=== PATIENT | male | born 1955 | race Caucasian/White ===

== ENCOUNTER 2020-04-19 02:48 | Inpatient (IN) | payer OTHER, SELFPAY ==
[2020-04-19] MEDS ORDERED: Lidocaine Viscous Sol 2% 15 ml UD Cup ONE (03:06)
[2020-04-19] MEDS ORDERED: Mag-Al 1200 mg/1200 mg/30 ML UDCUP ONE (03:06)
[2020-04-19 03:32] LABS: #Eosinphils 0.2 thou/uL (0.0-0.7); #Lymphocytes 1.8 thou/uL (1.20-3.40); #Monocytes 0.9 thou/uL (0.11-0.59); #Neutrophils 11.2 thou/uL (1.40-6.50); %Basophils 0.2 % (0.0-1.0); %Eosinophils 1.2 % (0.0-10.0); %Lymphocytes 12.9 % (21.0-51.0); %Monocytes 6.2 % (0.0-10.0); %Neutrophils 79.5 % (42.0-75.0); Hemoglobin 13.3 g/dL (14.0-18.0); Mean Corpuscular HGB CONC 32.1 g/dL (32.0-36.0); Mean Corpuscular Hemoglobin 24.5 pg (27.0-31.0); Mean Corpuscular Volume 76.4 fL (78.0-98.0); Mean Platelet Volume 7.7 fL (7.4-10.4); Platelet Count 419 thou/uL (130-400); RBC Distribution Width 14.6 % (11.5-14.5); Red Blood Cell (RBC) Count 5.42 mill/uL (4.70-6.10); White Blood Cell (WBC) Count 14.2 thou/uL (4.8-10.8)
[2020-04-19 03:51] LABS: ALT (SGPT) 213 U/L (8-55); AST (SGOT) 141 U/L (5-34); Albumin 4.3 g/dL (3.4-4.8); Alkaline Phosphatase 218 U/L (40-110); Anion Gap 19 mmol/L (10-20); BUN (Urea Nitrogen) 22 mg/dL (8.4-25.7); CK (CPK) 63 U/L (30-200); Calc. Creatinine Clearance 0 mL/min (70-130); Carbon Dioxide 23 mmol/L (23-31); Chloride 97 mmol/L (98-107); Estimated GFR-MDRD 69; Globulin 3.5 g/dL (2.4-3.5); Glucose 237 mg/dL (80-115); Lipase 29 U/L (8-78); Potassium 3.2 mmol/L (3.5-5.1); Protein, Total 7.8 g/dL (5.8-8.1); Sodium 136 mmol/L (136-145)
[2020-04-19] MEDS ORDERED: metroNIDAZOLE 500 MG/100 ML BAG ONE (05:27)
[2020-04-19] MEDS ORDERED: Fentanyl 100 MCG/2 ML VIAL ONE ×3 (05:27→22:36)
[2020-04-19] MEDS ORDERED: Ondansetron PF 4 MG/2 ML Vial ONE ×2 (05:33→13:34)
[2020-04-19] MEDS ORDERED: Morphine 2 MG/ML SYRINGE SLOW IVP PRN (06:50)
[2020-04-19] MEDS ORDERED: Dextrose 50% Abboject 50 ML SYRINGE SLOW IVP PRN (06:50)
[2020-04-19] MEDS ORDERED: Insulin Regular 300 UNITS/3 ML VIAL SC PRN (06:50)
[2020-04-19] MEDS ORDERED: Dextrose 5% in Water 1,000 ML IV PRN (06:50)
[2020-04-19] MEDS ORDERED: Promethazine HCl 25 MG/ML VIAL IM PRN ×2 (06:50→22:13)
[2020-04-19] MEDS ORDERED: hydrALAZINE 20 MG/ML VIAL SLOW IVP PRN (06:50)
[2020-04-19 07:04] LABS: INR-International Normal Ratio 0.9; PTT 29.4 sec (22.9-36.1); Prothrombin Time 12.3 sec (12.0-14.7)
[2020-04-19 07:18] LABS: Magnesium 1.6 mg/dL (1.6-2.6); Phosphorus 2.8 mg/dL (2.3-4.7)
[2020-04-19 08:03] VITALS: BMI 37.8
[2020-04-19] MEDS ORDERED: traMADol HCl 50 MG TAB PO PRN (08:14)
[2020-04-19] MEDS ORDERED: Magnesium 2 GM/50 ML 2 GM in Premix Bag 1 BAG IVPB SCH (08:45)
--- NOTE | 2020-04-19 09:05 | RAD ---
PORTABLE CHEST: DATE: 04/19/2020. PROVIDED CLINICAL HISTORY: Chest pain. FINDINGS: Comparison 04/05/2020. Cardiac and mediastinal silhouette is within normal limits. Vascular calcific ation is noted involving the aortic arch. No focal consolidation, pleural fluid, or pneumothorax alison arent. Remote healed right clavicular fracture. IMPRESSION: No evidence for an acute cardiopulmonary process. POS: TORIE
--- NOTE | 2020-04-19 09:06 | HP ---
This is Josefa Campuzano NP dictating a report for Tacos Gaitan DO. REQUESTING PHYSICIAN: Dr. Ann. CHIEF COMPLAINT: Abdominal pain, nausea, vomiting off and on for 2 weeks. HISTORY OF PRESENT ILLNESS: This is a 65-year-old gentleman, who presented to the emergency room with complaints of epigastric type chest pain since about 10 o'clock last night. The patient states that the pain is worse when he lies flat and improves some when sitting up. The patient felt like he was having heart pain as he had a squeezing sensation in his upper mid chest. The patient denied any shortness of breath, lightheadedness, fever, or chills. The patient's pain has been off and on for about two weeks. The patient has also had some nausea and vomiting off and on, vomiting mainly occurs at night. The patient also reports feeling bloated and belching. The patient had a bowel movement last night, which was normal. The patient reports he normally has 2 to 3 bowel movements every day. The patient was evaluated in the emergency room and the gallbladder ultrasound was obtained, showing cholelithiasis. The patient was given levofloxacin and Flagyl in the emergency room. The patient was also given fentanyl, which improved his pain. The patient reports pain is not associated with eating. REVIEW OF SYSTEMS: A 10-point review of systems is negative unless otherwise indicated in the above HPI. PAST MEDICAL HISTORY: Diabetes type 2, hypertension, and hyperlipidemia. PAST SURGICAL HISTORY: Appendectomy and right ankle repair. ALLERGIES: PENICILLIN. CURRENT MEDICATIONS: 1. Amlodipine 10 mg daily. 2. Fish oil/omega-3-6-9. 3. Hydralazine 25 mg p.o. 3 times a day. 4. Lisinopril 20 mg daily. 5. Loratadine 10 mg daily. 6. Metformin 500 mg b.i.d. with meals. 7. Simvastatin 40 mg daily at bedtime. 8. Glimepiride 4 mg q.a.m. SOCIAL HISTORY: The patient denies alcohol use, smokes marijuana, former tobacco user. OBJECTIVE: VITAL SIGNS: Blood pressure 149/81, pulse 79, respirations 19, SpO2 of 96% on room air, and temperature 98.3. GENERAL: Middle-aged male, awake, alert, in no distress. HEENT: Atraumatic and normocephalic. Mucous membranes moist. Pupils equal bilateral. NECK: Normal range of motion of neck, trachea midline. RESPIRATORY: Bilateral breath sounds clear. No wheezing, rales, or rhonchi. CARDIAC: Regular rate. Regular rhythm. No murmurs. ABDOMEN: Obese, mildly distended, soft, nontender. No peritoneal signs. Diffuse tenderness with palpation. EXTREMITIES: Moves all extremities, neurovascularly intact x4. NEUROLOGIC: No focal deficits. DIAGNOSTIC DATA: 12-lead EKG, normal sinus rhythm, 78, no ectopy, normal ST and T-waves, prolonged QTc. Chest x-ray, impression, no acute cardiopulmonary process, pending official read. Abdominal ultrasound, impression, enlarged liver, cholelithiasis as noted with gallbladder sludge and gallbladder is markedly distended at 15 cm. No wall thickening. No pericholecystic fluid. Positive sonographic Lowery sign. Ultrasound was reviewed by Dr. Gaitan, common bile duct normal diameter at 2 mm. LABORATORY DATA: WBC 14.2, RBC 5.42, hemoglobin 13.3, hematocrit 41.4, platelets 419. PT 12.3, INR 0.9, APTT 29.4. Sodium 136, potassium 3.2, chloride 97, BUN 22, creatinine 1.08, estimated GFR 69, glucose 237, calcium 10.0, phosphorus 2.8, magnesium 1.6, total bilirubin 2.0, AST 141, ALT 213, alkaline phos 218, CK 63, troponin I 0.010. C-reactive protein 2.26. Amylase 60, lipase 29, albumin 4.3. IMPRESSION: 1. Cholelithiasis. 2. Hypokalemia. 3. Hyperglycemia. PLAN: N.p.o. with maintenance IV fluids. Dr. Gaitan plans to take the patient to the OR for a laparoscopic cholecystectomy. Pain control. Regular insulin sliding scale and q.6 hour Accu-Cheks while the patient is n.p.o. After home medications have been reconciled, we will restart the patient's home blood pressure medications with hold parameters. Continue IV antibiotics. The patient was examined by Dr. Gaitan. The plan was made with Dr. Gaitan. We will replace electrolytes. Job ID: [id number]
--- NOTE | 2020-04-19 09:35 | ULT ---
PRELIMINARY REPORT/DIRECT RADIOLOGY/EMERGENCY AFTER HOURS PROCEDURE EXAM: US Abdomen Limited, Right Upper Quadrant. CLINICAL HISTORY: HX: ABD PAIN, N/V. SEE NOTES ON LAST IMAGE. THANKS TECHNIQUE: Real-time ultrasound of the right upper quadrant with image documentation. COMPARISON: None provided. FINDINGS: LIVER: Enlarged at 25.7 cm and demonstrates that the infiltration. GALLBLADDER: Cholelithiasis is noted with gallbladder sludge and gallbladder is markedly distended at 15 cm. No wall thickening. No pericholecystic fluid. Positive sonographic Lowery's sign COMMON BILE DUCT: Appears dilated at 16 mm, and intrahepatic biliary ductal dilatation is noted PANCREAS: Partially obscured by overlying bowel gas. RIGHT KIDNEY: Unremarkable. No hydronephrosis. Measures 11 cm IMPRESSION: Cholelithiasis with intra and extrahepatic biliary ductal dilatation. The patient demonst rated a positive sonographic Lowery sign however there is no evidence for wall thickening or perichol ecystic fluid. ELECTRONICALLY SIGNED BY: Gabe Wahl MD Apr 19, 2020 5:17:57 AM CDT FINAL REPORT GALLBLADDER ULTRASOUND: HISTORY: Right upper quadrant pain. FINDINGS: Real-time imaging of the right upper quadrant shows a mildly distended gallbladder. There is a galls tone and sludge within the gallbladder. The common bile duct is dilated at 1.6 cm. The distal duct is not well visualized. The technologist reports a positive ultrasound Lowery's sign. There is intr ahepatic ductal dilatation. Diffuse fatty change to the liver. The right kidney is normal in size a nd not obstructed. The pancreas is partially obscured. IMPRESSION: Mildly distended gallbladder. There is a gallstone and sludge present within the gallbladder and a d ilated common bile duct at 1.5 cm. Positive ultrasound Lowery's sign. POS: LOW
[2020-04-19] MEDS: Ondansetron PF 4 MG/2 ML Vial IVP PRN ×2 (09:46→15:25)
[2020-04-19] MEDS: Sodium Chloride 0.9% 1,000 ML IV SCH ×2 (09:53→15:30)
[2020-04-19] MEDS: Polyethylene Glycol 3350 17 GM Packet PO SCH (09:57)
[2020-04-19] MEDS: Senokot S 8.6-50 MG TAB PO SCH ×2 (09:57→22:21)
[2020-04-19] MEDS: traMADol HCl 50 MG TAB PO SCH ×3 (09:58→22:21)
[2020-04-19] MEDS ORDERED: Potassium Phosphate 30 MMOL in Sodium Chloride 0.9% 500 ML IVPB SCH (10:00)
[2020-04-19] MEDS ORDERED: Glycopyrrolate 0.2 MG/ML 5 ML SYRINGE ONE (13:34)
[2020-04-19] MEDS ORDERED: PHENYLEPHRINE-NS 100 MCG/ML 10 ML SYRINGE ONE ×2 (13:34→20:31)
[2020-04-19] MEDS ORDERED: PROPOFOL 200 MG/20 ML VIAL ONE (13:34)
[2020-04-19] MEDS ORDERED: Rocuronium Bromide 10 MG/ML (10ML VIAL) ONE (13:34)
[2020-04-19] MEDS ORDERED: Lidocaine 1% PF 5 ML VIAL ONE (13:34)
[2020-04-19] MEDS ORDERED: EPHEDRINE 25 MG/5 ML SYRINGE ONE (13:34)
[2020-04-19] MEDS ORDERED: Lidocaine 1% w/Epinephrine 1:100K 20 ML VIAL ONE (18:45)
[2020-04-19] MEDS ORDERED: Bupivacaine 0.25% HCL 30 ML VIAL ONE (18:45)
[2020-04-19] MEDS ORDERED: Lidocaine 2% Jelly 5 ML TUBE ONE (18:48)
[2020-04-19] MEDS ORDERED: Midazolam HCl 2 mg/2 ml Vial ONE (18:48)
[2020-04-19] MEDS ORDERED: SUGAMMADEX SODIUM 200 MG/2 ML VIAL ONE (20:42)
[2020-04-19] MEDS ORDERED: Iopamidol 50 ML FS ONE (20:47)
--- NOTE | 2020-04-19 21:24 | RAD ---
EXAM: XR Cholangiogram in Surgery PROVIDED CLINICAL HISTORY: Right upper quadrant abdominal pain. Dilated common duct cholelithiasis. COMPARISON: None FINDINGS/IMPRESSION: 3 intraoperative fluoroscopic images from an intraoperative cholangiogram are submitted for interpret ation. Cystic duct is cannulated. There is extravasation of contrast seen in the right upper quadrant. There is a dilated cystic duct as well as markedly dilated common duct seen. Free spill of contrast into the duodenum is not imaged on this exam. The distal common duct is incompletely opacified. Intrahepatic bile ducts are not seen. There is suggestion of a filling defect seen at the junction of the cystic duct and common duct, but this is likely artifactual and related to injection of contrast as opposed to a calculus. No definite persistent filling defect related to calc ulus is not identified on this exam dated again the entire common duct is not opacified. Correlation with intraoperative findings is recommended. Fluoroscopy: Time-35 seconds Dose-15.4 mGy
[2020-04-19] MEDS ORDERED: Ondansetron HCl/PF 4 MG/2 ML Vial IVP PRN (22:13)
[2020-04-19] MEDS ORDERED: Promethazine HCl 25 MG/ML VIAL SLOW IVP PRN (22:13)
[2020-04-20] MEDS: Sodium Chloride 0.9% 1,000 ML IV SCH ×2 (01:44→08:39)
--- NOTE | 2020-04-20 01:47 | OP ---
DATE OF PROCEDURE: 04/19/2020 PREOPERATIVE DIAGNOSES: 1. Acute cholecystitis with cholelithiasis. 2. Umbilical hernia. POSTOPERATIVE DIAGNOSES: 1. Acute cholecystitis with cholelithiasis. 2. Umbilical hernia. OPERATIONS PERFORMED: 1. Laparoscopic cholecystectomy with intraoperative cholangiogram. 2. Repair of umbilical hernia. ANESTHESIA: General endotracheal. ESTIMATED BLOOD LOSS: 100 mL. FLUIDS GIVEN: 2000 mL crystalloids. COUNTS: Sponge and instrument counts were verified as correct x2. COMPLICATIONS: None apparent at the time of operation. FLUOROSCOPY TIME: Total fluoroscopy time was 35 seconds using 20 mL of half-strength Isovue. INDICATIONS FOR OPERATION: A 65-year-old man presented with recurrent epigastric right upper quadrant abdominal pain. Clinical and radiographic examination were consistent with acute cholecystitis with cholelithiasis. Additionally, the patient was found with a large non-incarcerated umbilical hernia. Decision was made therefore to bring the patient to operating room for laparoscopic cholecystectomy. The umbilical hernia was also to be repaired. DESCRIPTION OF PROCEDURE: Informed consent was obtained from the patient who was brought to the operating room and placed in supine position. Following general anesthesia, abdomen was sterilely prepped and draped in usual fashion. I addressed the umbilical hernia first making an infraumbilical curvilinear incision using a 15 scalpel. Incision was carried down to subcutaneous tissues and maintained hemostasis using cautery. The hernia sac was circumferentially dissected off from picayune fascia. The hernia sac was then dissected off the umbilicus. Care was taken to avoid injury to the umbilicus. The hernia sac was opened, and omentum was reduced into the peritoneal cavity. The hernia sac was then excised circumferentially down to the level of the picayune fascia. I then placed interrupted sutures of 0 Vicryl to reapproximate the picayune fascia to close the hernia defect. The middle sutures were left untied, and through this, Rayray port was introduced into the peritoneal cavity and was secured tightly using the stay sutures of 0 Vicryl. The abdomen was then insufflated with 3.5 L of CO2 gas. Under direct laparoscopy, a 12 mm epigastric and two 5 mm right lateral subcostal ports were placed after the overlying skin were infiltrated with 0.25% Marcaine with epinephrine. Appropriate incision was made. The patient was then placed in reverse Trendelenburg position, rotated to his left. Laparoscopy revealed the entire right upper quadrant completely encased by omental adhesions obscuring the liver. Under direct laparoscopy, I introduced a [place] dissector with cautery to take down omental adhesions to expose the fundus of the gallbladder. I then introduced a Prestige grasper through the right lateral subcostal port grasping the fundus of the gallbladder, attempted to elevate the gallbladder cephalad; however, the liver was markedly enlarged and with fatty infiltration, difficult to mobilize. I then proceeded to bluntly take down additional omental adhesions to the gallbladder to allow for better punctures of the gallbladder, which was slightly elevated cephalad. Omental adhesions were then taken down off the remainder of the gallbladder maintaining hemostasis using cautery. I applied a second Prestige grasper, which was introduced through the right medial subcostal port using this to grasp the midportion of the gallbladder, attempted to further elevate this cephalad. There was significant amount of fibrotic adhesions, which were meticulously bluntly taken down. I then was able to open the peritoneum off the gallbladder, the infundibulum. The cystic artery was dissected free from surrounding structures and followed as it entered into the gallbladder infundibulum. The artery was then divided between clips applying 2 clips proximally and 1 clip at the junction of the cystic artery and gallbladder. It was difficult to delineate the cystic duct, so meticulous dissection of the ellen hepatis was able to free the cystic duct. I could not trace it down to the common bile duct. Decision was made at this juncture to perform a cholangiogram. I achieved this. I introduced a cholangiocatheter into the peritoneal cavity, flushed with saline. I then applied a clip at the junction of the cystic duct and gallbladder. I then opened the cystic duct proximal to the securing clip and inserted the catheter into the cystic duct lumen. In attempt to secure this with a clip, the cystic duct was completely disconnected from the gallbladder. I was able to cannulate the cystic ductal stump securing this with 2 clips. Flushed this with saline, it was not quite freely as there was some backflow due to incomplete occlusion of the cystic duct around the catheter. Cholangiogram was then performed as I was just trying to discern the presence of the common bile duct related to the cystic duct. I used a total of 20 mL of half-strength Isovue to perform a cholangiogram with total fluoroscopy time of 35 seconds. It was clear that I was in the cystic duct, which revealed flow of the contrast into the common bile duct, though there was no flow into the small bowel or hepatic radicles. The cholangiogram was terminated at this time. The securing clip was removed, and a cystic ductal stump was again secured with 2 clips. Operative site was copiously irrigated clear with saline. Mostly noted that a large amount of black bile with tiny stones egressed out of the cystic ductal stump once the catheter was removed. Following adequate irrigation of the operative site, I introduced a #19 Maximiliano drain into the subhepatic space and allowed this to exit the abdominal cavity through the right lateral subcostal port. The drain was secured to anterior abdominal wall using 2-0 silk suture. The fascia of the epigastric port was then closed using 0 Vicryl suture and Endo Close device on the laparoscopy. I was able to remove the Rayray blunt port, and the umbilical fascia defect was then completely closed using interrupted sutures of 0 Vicryl under direct vision laparoscopically. The abdomen was then desufflated. All ports and instruments were removed and accounted for. The umbilicus was reattached to picayune fascia using interrupted sutures of 3-0 Vicryl. The infraumbilical incision was closed using a running stitch of 3-0 Monocryl suture in subcuticular fashion. The remainder of the abdominal incisions were closed using interrupted sutures of 4-0 Monocryl. Dermabond was applied over incisional closures. The patient tolerated the operation without any apparent complication and was returned to recovery room in satisfactory condition. Job ID: [id number]
[2020-04-20] MEDS: traMADol HCl 50 MG TAB PO SCH ×4 (03:12→21:24)
[2020-04-20 05:26] LABS: #Lymphocytes 0.7 thou/uL (1.20-3.40); #Monocytes 0.7 thou/uL (0.11-0.59); #Neutrophils 11.4 thou/uL (1.40-6.50); %Basophils 0.1 % (0.0-1.0); %Eosinophils 0.1 % (0.0-10.0); %Lymphocytes 5.1 % (21.0-51.0); %Monocytes 5.6 % (0.0-10.0); %Neutrophils 89.1 % (42.0-75.0); Hemoglobin 12.6 g/dL (14.0-18.0); Mean Corpuscular Hemoglobin 26.5 pg (27.0-31.0); Mean Corpuscular Volume 77.7 fL (78.0-98.0); Mean Platelet Volume 7.7 fL (7.4-10.4); Platelet Count 283 thou/uL (130-400); RBC Distribution Width 14.6 % (11.5-14.5); Red Blood Cell (RBC) Count 4.78 mill/uL (4.70-6.10); White Blood Cell (WBC) Count 12.8 thou/uL (4.8-10.8)
[2020-04-20 05:49] LABS: ALT (SGPT) 364 U/L (8-55); AST (SGOT) 284 U/L (5-34); Alkaline Phosphatase 244 U/L (40-110); Anion Gap 14 mmol/L (10-20); BUN (Urea Nitrogen) 12 mg/dL (8.4-25.7); Bilirubin, Total 6.3 mg/dL (0.2-1.2); Calc. Creatinine Clearance 118 mL/min (70-130); Calcium 8.8 mg/dL (7.8-10.44); Carbon Dioxide 30 mmol/L (23-31); Chloride 94 mmol/L (98-107); Estimated GFR-MDRD 74; Globulin 3.1 g/dL (2.4-3.5); Glucose 308 mg/dL (80-115); Magnesium 1.6 mg/dL (1.6-2.6); Phosphorus 3.2 mg/dL (2.3-4.7); Potassium 3.2 mmol/L (3.5-5.1); Protein, Total 7.1 g/dL (5.8-8.1); Sodium 135 mmol/L (136-145)
[2020-04-20] MEDS: Insulin Regular 300 UNITS/3 ML VIAL SC PRN ×3 (05:56→18:16)
[2020-04-20] MEDS: Senokot S 8.6-50 MG TAB PO SCH ×2 (08:40→21:25)
[2020-04-20] MEDS: Ondansetron PF 4 MG/2 ML Vial IVP PRN (08:45)
[2020-04-20] MEDS: Polyethylene Glycol 3350 17 GM Packet PO SCH (08:57)
[2020-04-20] MEDS ORDERED: Magnesium 2 GM/50 ML 2 GM in Premix Bag 1 BAG IVPB SCH (11:00)
[2020-04-20] MEDS ORDERED: Potassium Phosphate 30 MMOL in Sodium Chloride 0.9% 250 ML 250 ML IVPB SCH (11:00)
[2020-04-20] MEDS ORDERED: Levofloxacin 500 mg/D5W 100 ml Premix Bag ONE (12:27)
[2020-04-20] MEDS ORDERED: Indomethacin 50 MG SUPP ONE (12:44)
[2020-04-20] MEDS ORDERED: Iopamidol 50 ML FS ONE (12:44)
[2020-04-20] MEDS ORDERED: Indomethacin 50 MG SUPP PR SCH (12:45)
[2020-04-20] MEDS ORDERED: Fentanyl 100 MCG/2 ML VIAL ONE (13:01)
[2020-04-20] MEDS ORDERED: Calcium Chloride 1 GM/10 ML Abboject SYRINGE ONE (14:04)
[2020-04-20] MEDS ORDERED: PHENYLEPHRINE-NS 100 MCG/ML 10 ML SYRINGE ONE (14:04)
[2020-04-20] MEDS ORDERED: Ondansetron PF 4 MG/2 ML Vial ONE (14:04)
[2020-04-20] MEDS ORDERED: Lidocaine 1% PF 5 ML VIAL ONE (14:04)
[2020-04-20] MEDS ORDERED: PROPOFOL 200 MG/20 ML VIAL ONE (14:04)
[2020-04-20] MEDS ORDERED: EPHEDRINE 25 MG/5 ML SYRINGE ONE (14:04)
[2020-04-20] MEDS ORDERED: Dexamethasone 20 MG/5 ML VIAL ONE (14:04)
[2020-04-20] MEDS: Lactated Ringer's 1,000 ML IV SCH ×2 (15:10→21:47)
--- NOTE | 2020-04-20 16:13 | RAD ---
ERCP: Date: 04-20-2020 Provided Clinical History: Stones FINDINGS: Spot fluoroscopic images of the right upper quadrant demonstrate opacification of the common duct wit h multiple filling defects compatible with choledocholithiasis. IMPRESSION: As above. POS: TORIE
--- NOTE | 2020-04-20 17:04 | CON ---
DATE OF CONSULTATION: 04/20/2020 CONSULTING PHYSICIAN: Dr. Gaitan. REASON FOR CONSULTATION: Elevated liver enzymes. HISTORY OF PRESENT ILLNESS: Mr. Mayers is a 65-year-old gentleman, who was admitted to the hospital on 04/19/2020 for abdominal pain, nausea, and vomiting for 2 weeks. He was evaluated and found to have gallstones. Initially, he felt he was having heart-like pain and squeezing in his chest. He had no history of melena, hematochezia, or hematemesis. He was shown to have gallstones in the ER and a white count of 14,000. His INR was normal. EKG was reportedly normal as was the troponin at less than 0.01. He had a bilirubin of 2, AST and ALT of 141 and 213, and alkaline phosphatase of 218. His lipase was 29. He had an ultrasound that showed gallstones with intra and extrahepatic ductal dilatation to 16 mm. He had a 15 cm gallbladder and enlarged fatty liver. The patient denies any prior known history of liver disease. In 03/2012, he had a bilirubin of 1.7 with AST and ALT of 28 and 20, alkaline phosphatase of 100. He had a laparoscopic cholecystectomy yesterday. An IOC was apparently attempted, but there were difficulties with that and cholangiograms did not show the intrahepatic ducts. There was questionable filling defect at the junction of the cystic and common duct. It is possible this was artifact. There were no definite persistent filling defects, but the entire duct was not opacified. There was no drainage into the duodenum. The patient states he has some pain on his trocar sites, but otherwise feels a little bit better. He has no nausea or vomiting. Denies any chest pain. Denies any fever or chills. PAST MEDICAL HISTORY: He denies any coronary disease or strokes. He has hypertension, hyperlipidemia, type-2 diabetes. PAST SURGICAL HISTORY: Right ankle repair and appendectomy. ALLERGIES: PENICILLIN. MEDICATIONS AT HOME: 1. Amlodipine. 2. Fish oil. 3. Hydralazine. 4. Lisinopril. 5. Loratadine. 6. Metformin. 7. Simvastatin. 8. Glimepiride. SOCIAL HISTORY: The patient stopped drinking alcohol 2 years ago. He smokes marijuana occasionally. Does not use tobacco. He uses no other drugs. HOSPITAL MEDICATIONS: Medications here in the hospital; 1. P.r.n. hydralazine. 2. Insulin sliding scale. 3. Magnesium sulfate, given today for low magnesium. 4. P.r.n. morphine. 5. Zofran. 6. P.r.n. MiraLAX. 7. Potassium phosphate given today. 8. Tramadol p.r.n. for pain. PHYSICAL EXAMINATION: GENERAL: He is resting comfortably in bed. VITAL SIGNS: His temperature is 98.2, pulse 83, respirations 16, O2 saturation 92% on 2 L nasal cannula, blood pressure 119/72. GENERAL: He is little bit dyspneic and has a raspy voice. NECK: Supple without adenopathy. LUNGS: Clear. HEART: Regular rate and rhythm without clicks or murmurs. ABDOMEN: Soft and nontender without rebound or guarding. Trocar sites look healthy and stable. LABORATORY DATA: Bilirubin 6.3. AST and ALT are 284 and 364, alkaline phosphatase is 244. Lipase was not repeated. Amylase was 60 yesterday morning. White count 12.8, hemoglobin 12.6, platelet count 283. SARS test on 04/19 was negative. ASSESSMENT: 1. Elevated liver enzymes. He has multiple findings. He had gallstones and dilated intrahepatic ducts and common bile duct, but no stones. It seems like this is possibly an inadequate study, but there was no drainage of biliary contrast into the duodenum. Most likely, this represents some type of choledocholithiasis. Differential diagnosis includes an ampullary mass as liver enzymes could be elevated related to anesthetic side effects. Less likely from fatty liver, he does have an enlarged liver on ultrasound. 2. History of fatty liver by ultrasound. This is likely related to his diabetes and hyperlipidemia. RECOMMENDATIONS: 1. We will check a lipase now. 2. We would start Levaquin 500 mg IV now. 3. Start lactated Ringer's 150 mL an hour now. We will proceed with ERCP today for possible choledocholithiasis and low-grade cholangitis. Risks, benefits, and possible complications of procedure were discussed with the patient including risk of perforation, bleeding risk, medication, aspiration, and pancreatitis, and he wishes to proceed. I have discussed the case with Dr. Gaitan as well. Job ID: [id number]
--- NOTE | 2020-04-20 20:50 | PRG ---
DATE OF SERVICE: 04/20/2020 SUBJECTIVE: Mr. Mayers is a 65-year-old man who underwent laparoscopic cholecystectomy with intraoperative cholangiogram yesterday which failed to visualize the small bowel. Common bile ductal obstruction was suspected. Overnight, the patient denies any worsening abdominal pain. In fact, he denies any nausea or vomiting. Pain seems to be controlled with oral analgesics. OBJECTIVE: VITAL SIGNS: This morning on evaluation, vital signs were noted with blood pressure 139/71, pulse 85, respiratory rate 16, temperature 97.6 degrees Fahrenheit, oxygen saturation 92% on 2 L by nasal cannula oxygen. HEENT: Pupils equal, round, reactive to light. He has no scleral icterus present. HEART: Reveals regular rate and rhythm. No murmurs or gallops auscultated. LUNGS: Clear to auscultation bilaterally. Breathing, regular and nonlabored. ABDOMEN: Soft and obese. Incisions are intact, clean, dry. He has no peritoneal signs on examination. Rohit-Meeks drain returned moderate amount of serosanguineous fluid. Clearly no bilious output. NEUROLOGIC: Reveals no focal deficits present. LABORATORY FINDINGS: This morning includes CBC with 12,800 white blood cells. Hemoglobin and hematocrit stable at 12.6 and 37.1 respectively. Platelet count 283,000. Metabolic profile; sodium 135, potassium 3.2, chloride is 94, bicarb 30, BUN 12, creatinine is 1.02, glucose 308, magnesium 1.6, phosphorus is 3.2, total bilirubin is elevated at 6.3 in contrast to 2.0 preoperatively yesterday. AST and ALT are also elevated at 284 and 364 respectively compared to 141 and 213 yesterday. Alkaline phosphatase is also slightly elevated at 244 compared to 218 yesterday. IMPRESSION: 1. Postop day #1 status post laparoscopic cholecystectomy. 2. Elevated liver function tests, suspect choledocholithiasis. PLAN: Discussed with Gastroenterology patient would undergo ERCP today. Above findings and plan discussed with the patient who indicates understanding of information given. I have answered all his questions. Job ID: [id number]
[2020-04-20] MEDS ORDERED: Atorvastatin Calcium 20 MG TAB PO SCH (21:00)
[2020-04-21] MEDS ORDERED: Calcium Carbonate 500 MG ChewTAB PO PRN (00:35)
[2020-04-21] MEDS: traMADol HCl 50 MG TAB PO SCH ×3 (02:37→14:45)
[2020-04-21] MEDS: Lactated Ringer's 1,000 ML IV SCH ×3 (04:35→15:59)
[2020-04-21 05:24] LABS: #Eosinphils 0.1 thou/uL (0.0-0.7); #Lymphocytes 1.5 thou/uL (1.20-3.40); #Monocytes 0.9 thou/uL (0.11-0.59); #Neutrophils 9.9 thou/uL (1.40-6.50); %Basophils 0.1 % (0.0-1.0); %Eosinophils 0.5 % (0.0-10.0); %Monocytes 6.9 % (0.0-10.0); %Neutrophils 80.5 % (42.0-75.0); Hemoglobin 11.1 g/dL (14.0-18.0); Mean Corpuscular HGB CONC 31.9 g/dL (32.0-36.0); Mean Corpuscular Volume 78.2 fL (78.0-98.0); Mean Platelet Volume 7.6 fL (7.4-10.4); Platelet Count 265 thou/uL (130-400); RBC Distribution Width 14.6 % (11.5-14.5); Red Blood Cell (RBC) Count 4.47 mill/uL (4.70-6.10); White Blood Cell (WBC) Count 12.2 thou/uL (4.8-10.8)
[2020-04-21 05:47] LABS: ALT (SGPT) 243 U/L (8-55); AST (SGOT) 80 U/L (5-34); Albumin 3.5 g/dL (3.4-4.8); Alkaline Phosphatase 205 U/L (40-110); Anion Gap 10 mmol/L (10-20); BUN (Urea Nitrogen) 10 mg/dL (8.4-25.7); Bilirubin, Total 1.9 mg/dL (0.2-1.2); Calc. Creatinine Clearance 144 mL/min (70-130); Calcium 9.2 mg/dL (7.8-10.44); Carbon Dioxide 32 mmol/L (23-31); Chloride 96 mmol/L (98-107); Estimated GFR-MDRD Greater than 90; Glucose 156 mg/dL (80-115); Lipase 77 U/L (8-78); Magnesium 1.8 mg/dL (1.6-2.6); Potassium 3.3 mmol/L (3.5-5.1); Protein, Total 6.5 g/dL (5.8-8.1); Sodium 135 mmol/L (136-145)
[2020-04-21 06:27] LABS: Phosphorus 2.4 mg/dL (2.3-4.7)
[2020-04-21] MEDS: Senokot S 8.6-50 MG TAB PO SCH ×2 (08:15→13:36)
[2020-04-21] MEDS: Polyethylene Glycol 3350 17 GM Packet PO SCH ×2 (08:15→13:36)
[2020-04-21 08:54] VITALS: TEMP 98.1
[2020-04-21] MEDS ORDERED: Amlodipine 10 MG TAB PO SCH (09:00)
[2020-04-21] MEDS ORDERED: Lisinopril 20 MG TAB PO SCH (09:00)
[2020-04-21] MEDS ORDERED: Hydrochlorothiazide 25 MG TAB PO SCH (09:00)
[2020-04-21] MEDS ORDERED: Saccharomyces boulardii 250 MG CAP PO SCH (09:00)
[2020-04-21] MEDS ORDERED: hydrALAZINE 25 MG TAB PO SCH (09:00)
[2020-04-21] MEDS ORDERED: Potassium Chloride 20 MEQ TAB PO SCH (09:15)
[2020-04-21] MEDS ORDERED: Magnesium 2 GM/50 ML 2 GM in Premix Bag 1 BAG IVPB SCH (09:15)
--- NOTE | 2020-04-21 09:15 | OP ---
DATE OF PROCEDURE: 04/20/2020 PREOPERATIVE DIAGNOSES: 1. Abnormal LFTs. 2. Abnormal intraoperative cholangiogram. 3. Status post cholecystectomy for gallstones and cholecystitis. POSTPROCEDURE DIAGNOSES: 1. Ascending cholangitis. 2. Distal esophageal ulcer possibly nasogastric tube related, benign appearance. PROCEDURES PERFORMED: Endoscopic retrograde cholangiopancreatography and sphincterotomy, removal of stones. ANESTHESIA: The patient was also given Levaquin 500 mg preoperatively for prophylaxis and Indocin suppositories 50 mg x2 for pancreatitis prophylaxis as well as a liter of lactated Ringer's starting before the procedure. RECOMMENDATIONS: Continue IV Levaquin. Follow liver function tests. He will need a stay in the hospital for a couple days and then go home on oral antibiotics. DESCRIPTION OF PROCEDURE: After the patient was informed of the risks, benefits, and possible complications of endoscopy including perforation, reaction to medication, and aspiration, informed consent was obtained. The patient was brought to endoscopy suite, where he was sedated in a gradual fashion. Once he was comfortably intubated, he was placed in prone position on fluoroscopy table and cost specialist film was obtained showing clips in the upper quadrant consistent with recent cholecystectomy. The endoscope was advanced through the esophagus, stomach, and second and third portions of the duodenum and ampulla was brought into view. The ampulla was bulging. It was easily cannulated, pus and bile came out during cannulation. A sphincterotomy was performed and two large stones popped out. Cholangiogram revealed multiple large filling defects in the duct. It was about 15 mm in size. A 15 mm balloon was used to sweep the duct several times and 4 or 5 more large yellow pigment stones were removed. A large amount of pus and gravelly bile was removed. After sweeping the distal duct clear, we started on the proximal duct and cleared that. Cholangiogram revealed large filling defects in the proximal hepatic duct and intrahepatic ducts. There was no cystic duct stump leak. The duct was swept several more times until clear. Occlusion cholangiogram revealed just some air bubbles. The duodenum was desufflated and clear bile was noted to be emanating from the ampulla. The drainage of contrast was documented both endoscopically and radiographically with intrahepatic ducts clear of all contrast spontaneously. The scope was then exchanged for an EGD scope and we evaluated the esophagus, where there seemed to be a small ulcer. With the side-viewing scope, this confirmed a 3 mm ulcer at the GE junction; this appears benign. This may be related to NG tube trauma if he had one during his cholecystectomy. There were no other ulcers or erosions. Stomach had normal sensibility in forward and retroflexed views. The stomach was normal as was the duodenal in the third portion. There was good hemostasis of the ampulla. The scope was removed. The patient tolerated the procedure well. No complications. Job ID: [id number]
[2020-04-21] MEDS: Insulin Regular 300 UNITS/3 ML VIAL SC PRN ×2 (13:36→16:40)
[2020-04-21 16:34] VITALS: BP 145/82
--- NOTE | 2020-04-22 12:52 | DIS ---
DATE OF ADMISSION: 04/19/2020 DATE OF DISCHARGE: 04/21/2020 ADMISSION DIAGNOSIS: Acute cholecystitis. DISCHARGE DIAGNOSIS: Acute cholecystitis. CONSULTING PHYSICIAN: Dr. Lancaster of GI. PROCEDURES: The patient went to OR on April 19, 2020, and had a laparoscopic cholecystectomy with IOC and umbilical hernia repair. The patient also received an ERCP by Dr. Lancaster postoperatively for removal of gallstones in the bile duct. HOSPITAL COURSE: The patient is a 65-year-old male, presented to the emergency department, complaining of epigastric and chest pain. He was found to have acute cholecystitis and cholelithiasis and he was admitted to the hospital. He went to the OR with Dr. Gaitan and had a laparoscopic cholecystectomy with IOC and umbilical hernia repair. Postoperatively, the patient also went for an ERCP with Dr. Lancaster, where stones were cleared from the bile duct. Postoperatively, the patient was hemodynamically stable on the floor. He tolerated a regular diet. IV fluids were discontinued. He was on levofloxacin postoperatively and was discharged home with 5 days antibiotics. At the time of discharge, the patient's pain was well controlled. He was tolerating a heart-healthy diet and he was ambulating without difficulties. DISCHARGE DISPOSITION: Home. DISCHARGE INSTRUCTIONS: The patient was discharged home. Activity; as tolerated. Diabetic and heart healthy diet. No PT needs. He is to continue use incentive spirometer. Wound care instructions were discussed with the patient at the bedside. MEDICATIONS: Include; 1. Amlodipine. 2. Aspirin. 3. Fish oil. 4. Amaryl. 5. Hydralazine. 6. Hydrochlorothiazide. 7. Levofloxacin for a total of 5 days. 8. Lisinopril. 9. Losartan. 10. Metformin. 11. MiraLAX. 12. Florastor. 13. Simvastatin. 14. Tramadol. FOLLOWUP APPOINTMENTS: The patient is to follow up with Dr. Gaitan on May 06, 2020, at 2:30 p.m. He is to complete LFTs before his appointment. This is a summary of the patient's hospitalization. For full details, please see his medical record in its entirety. The patient was seen and evaluated by myself on the day of discharge. The [place] prescription monitoring program was not accessible or working appropriately at the time of his discharge. However, it was accessed the next day and there was no concern as no medications popped up from previous prescriptions. Job ID: [id number] [id number]
== END 2020-04-21 17:20 | disposition home or self-care (01) | DRG 418 ==
LOC: ERS 02:48 → SURG B 07:47
PROVIDERS: ADMIT Surgery; ATTEND Surgery
PROC: 0FT44ZZ Resection of Gallbladder, Percutaneous Endoscopic Approach (ICD-10-PCS; principal; 2020-04-19)
PROC: 0WQF4ZZ Repair Abdominal Wall, Percutaneous Endoscopic Approach (ICD-10-PCS; 2020-04-19)
PROC: BF131ZZ Fluoroscopy of Gallbladder and Bile Ducts using Low Osmolar Contrast (ICD-10-PCS; 2020-04-19)
PROC: 0FC98ZZ Extirpation of Matter from Common Bile Duct, Via Natural or Artificial Opening Endoscopic (ICD-10-PCS; 2020-04-20)
PROC: 0DJ08ZZ Inspection of Upper Intestinal Tract, Via Natural or Artificial Opening Endoscopic (ICD-10-PCS; 2020-04-20)
DX: K80.62 Calculus of gallbladder and bile duct with acute cholecystitis without obstruction (principal); K22.10 Ulcer of esophagus without bleeding; Z11.59 Encounter for screening for other viral diseases; K42.9 Umbilical hernia without obstruction or gangrene; E03.9 Hypothyroidism, unspecified; E78.5 Hyperlipidemia, unspecified; I10 Essential (primary) hypertension; E11.65 Type 2 diabetes mellitus with hyperglycemia; E87.6 Hypokalemia; K76.0 Fatty (change of) liver, not elsewhere classified; Z90.49 Acquired absence of other specified parts of digestive tract; Z87.891 Personal history of nicotine dependence; Z88.0 Allergy status to penicillin; Z79.899 Other long term (current) drug therapy; Z79.82 Long term (current) use of aspirin; Z79.84 Long term (current) use of oral hypoglycemic drugs
CPT/HCPCS: 36415; 36416; 47532; 71045; 74330; 76705; 80053; 82150; 82550; 83690; 83735; 84100; 84484; 85025; 85610; 85730; 86140; 87040; 88304; 93005; 94640; J0360; J1100; J1610; J1815; J1956; J2001; J2250; J2270; J2405; J2704; J3010; J3475; J7030; J7050; J7620; Q9967; S0020; U0002